=== PATIENT | male | born 1955 | race Caucasian/White ===

== ENCOUNTER 2019-04-14 10:08 | Inpatient (IN) ==
--- NOTE | 2019-04-14 10:25 | EKG Report ---
Test Performed on : 04/14/2019 10:19:50 AM Test Reason : CHEST PAIN Blood Pressure : / mmHG Vent. Rate : 078 BPM Atrial Rate : 078 BPM P-R Int : 152 ms QRS Dur : 104 ms QT Int : 392 ms P-R-T Axes : 063 062 032 degrees QTc Int : 446 ms Normal sinus rhythm. Septal infarct , age undetermined Abnormal ECG When compared with ECG of 13-APR-2019 13:34, (Unconfirmed) No significant change was found Unconfirmed Result
--- NOTE | 2019-04-14 12:33 | PROVIDER DOCUMENTATION ---
This chart was entered by Eliane Bradley Scribe, acting as scribe for Iam Andres MD. HPI-Chest Pain - General Chief Complaint: Chest Pain Stated Complaint: CP Time Seen by Provider: 04/14/19 10:17 Source: patient, old records Allergies/Adverse Reactions: Patient Allergies Allergy/AdvReac Type Severity Reaction Status Date / Time tramadol Allergy Unknown Verified 04/13/19 11:18 gabapentin [From Neurontin] AdvReac makes Verified 04/13/19 11:18 nerve pain worse cholesterol meds AdvReac cramping Uncoded 04/13/19 11:18 in legs Home Medications: Home Medication List Medication Instructions Recorded Confirmed Last Taken Type Amlodipine [Norvasc] 10 mg PO DAILY 06/06/17 04/14/19 04/13/19 History Albuterol Sulfate Inhaler 2 puff INH Q6H PRN PRN #1 inhaler 12/30/18 04/14/19 04/13/19 Rx [Ventolin Hfa] Hydrochlorothiazide 12.5 mg PO DAILY 12/30/18 04/14/19 04/13/19 History Metoprolol Tartrate [Lopressor] 1 tab PO DAILY 04/13/19 04/14/19 04/13/19 History - History of Present Illness-CP Nature of Presenting Problem: 63 y/o male presents to ED with substernal chest pain radiating to back/neck onset 10 days ago. Pt reports he was seen in ED yesterday, but left AMA because he had things he had to do. Pt states he has experienced associated dizziness and has had difficulty walking for the past 6 years. Pt reports his symptoms are worse today. Pt has hx COPD and is a smoker. Pt states he has hx alcoholism, but has not had anything to drink in 3 days. Pt reports movement exacerbates his pain. Pt is alert and oriented. Location: reports: substernal, epigastric Chest Pain Radiation: reports: neck, back Quality of Pain: reports: sharp Severity in ED: moderate Onset/Duration: other (10 days ago) Timing: still present, getting worse Context/Activities at Onset: reports: none Modifying Factors: worse with: movement Associated Symptoms: reports: back pain, dizziness Nitro Today/Relief: no nitro taken today Aspirin Treatment Today: no aspirin today Prior Chest Pain/Cardiac Workup: reports: other (workup in ED yesterday) Similar Symptoms Previously?: Yes Recently Seen Here or By Another Healthcare Provider: Yes (ED yesterday for same) Review of Systems - Adult - REVIEW OF SYSTEMS - ADULT Constitutional: denies: chills, fever Eyes: reports: no symptoms reported Ears, Nose, Mouth & Throat: reports: no symptoms reported Cardiovascular: reports: chest pain (radiating to back/neck). denies: palpitations Respiratory: denies: cough, shortness of breath Gastrointestinal: reports: no symptoms reported Genitourinary: reports: no symptoms reported Musculoskeletal: denies: bone pain, joint pain Integumentary: reports: no symptoms reported Neurological: reports: dizziness/vertigo, other (difficulty walking). denies: seizure Psychiatric: reports: no symptoms reported Endocrine: reports: no symptoms reported Hematologic/Lymphatic: reports: no symptoms reported Allergic/Immunologic: reports: no symptoms reported All Other Systems: Reviewed and Negative Past History - Adult - PAST MEDICAL HISTORY-ADULT Review of Records: reports: Old Records Reviewed, Nursing Assessment Review, Medications Reviewed Major Childhood Illnesses: reports: denies history Cardiovascular: reports: HTN, hyperlipidemia Respiratory: reports: asthma, COPD Gastrointestinal: reports: GERD Obstetrical/Gynecological: reports: denies history Genitourinary: reports: denies history Musculoskeletal: reports: arthritis, chronic pain, other (neuropathy on BLE) Neurological: reports: denies history Psychiatric: reports: other (EtOH abuse) Endocrine/Immune: reports: denies history Other Conditions: reports: denies history - PRIOR SURGERIES/PROCEDURES Surgical/Procedure History: reports: hernia repair, bowel surgery, other (cyst removal from neck) - IMMUNIZATION STATUS Childhood Immunizations: NUTD, See Nurse Assessment Flu Vaccine: See Nurse Assessment - FAMILY HISTORY Family History: reviewed, not pertinent - SOCIAL HISTORY Smoking: greater than 1 pack/day Provider spent 3-5 mins advising pt. on dangers of tobacco.: Discussed manners to quit use, and f/u contacts for add'l counseling. Substance Use: alcohol Alcohol Use Frequency: every day Living Situation: homeless Physical Exam-General - PHYSICAL EXAM-ADULT Initial Vital Signs Reviewed: Yes - CONSTITUTIONAL General Appearance: appears well, alert, no apparent distress - EYES Eyes: PERRL/EOMI, pink conjunctivae - HEAD, EARS, NOSE, MOUTH & THROAT HENMT: normocephalic/atraumatic, moist mucous membranes, normal ENT inspection - NECK Neck: non-tender, full range of motion - RESPIRATORY Respiratory: chest non-tender, lungs clear, normal breath sounds - CARDIOVASCULAR Cardiovascular: normal peripheral pulses, regular rate, rhythm - GASTROINTESTINAL (ABDOMEN) Abdominal Exam: normal bowel sounds, non tender, soft - MUSCULOSKELETAL Back Exam: normal inspection, no CVA tenderness, no vertebral tenderness Extremity: normal range of motion, non-tender - SKIN Integumentary: normal color, warm/dry - NEUROLOGIC Neurologic: grossly normal - PSYCHIATRIC Psych/Mental Status: normal mood/affect, normal thought content, normal thought process, oriented x 3 - HEART Score HEART Score: History: Slightly Suspicious HEART Score: ECG: Normal HEART Score: Age: 45-65 Years HEART Score: Risk Factors for Atherosclerotic Disease: > or = 3 Risk Factors or History of Atherosclerotic Disease HEART Score: Troponin: < or = Normal Limit Total HEART Score:: 3 Progress - PLAN OF CARE/RESULTS Progress/Plan/Lab Results: Vital Signs - 8 hr 04/14/19 10:12 04/14/19 10:24 04/14/19 10:25 Temperature 97.5 F L Pulse Rate 88 86 87 Respiratory Rate 16 16 14 Blood Pressure 159/85 181/126 O2 Sat by Pulse Oximetry 96 98 98 04/14/19 10:30 04/14/19 10:45 04/14/19 11:00 Temperature Pulse Rate 79 78 75 Respiratory Rate 16 14 18 Blood Pressure O2 Sat by Pulse Oximetry 95 97 95 04/14/19 11:15 04/14/19 11:30 04/14/19 11:45 Temperature Pulse Rate 70 73 71 Respiratory Rate 17 19 11 L Blood Pressure O2 Sat by Pulse Oximetry 95 97 97 04/14/19 12:00 04/14/19 12:10 Temperature Pulse Rate 73 73 Respiratory Rate 18 18 Blood Pressure 164/86 O2 Sat by Pulse Oximetry 95 96 Laboratory Results - last 24 hr 04/14/19 04/14/19 11:00 11:00 Creatine Kinase 81 Troponin T < 0.010 D Orders Category Date Time Status CK PROFILE [SP CHEM] Stat Lab 04/14/19 11:00 Completed TROPONIN T Stat Lab 04/14/19 11:00 Completed EKG [EKG] Stat Ther 04/14/19 10:16 Draft - EKG 1 Time of EKG reading by physician:: 10:19 EKG Read and Signed by:: Iam Andres EKG Interpretation (*Must complete 3 of following elements*): Abnormal Rate: 78 Rhythm: NSR Pelsor: normal QRS: other (septal infarct) CT Interval: normal ST Wave: normal - CONSULTS/PCP/HOSPITALIST Notification #1 *Consult/PCP/Hospitalist*: d/w Aaroney for Hospitalist Time Discussed: 12:26 Consult Disposition: Admit (for observation) Departure - Departure Date of Disposition Decision: 04/14/19 Time of Disposition Decision: 12:31 DIAGNOSIS: Chest pain Disposition: ADMITTED INPATIENT 09 Certified Medical Emergency: Emergent Condition: Stable Referrals and Follow-Ups: Desi Park MD [Primary Care Provider] - Discharge Education: Steps to Quit Smoking, [id number] - Critical Care Note This patient required my direct & personal management of CC.: No Attestation - Physician/ DAVID Attestation Patient care was provided by Advanced Practice Provider:: No The physician spent face to face time with patient:: Yes Advanced Practice Provider documentation review:: Supervising physician onsite and consulted in the evaluation and care of this patient. The physician did have a face to face encounter with the patient. This chart was documented by the indicated scribe, (Eliane Bradley Scribe) and accurately reflects the services I performed and decisions made by me, Iam Andres MD, as attested by the provider's signature.
[2019-04-14] MEDS ORDERED: DUONEB (A & A) INH PRN (13:11)
[2019-04-14] MEDS ORDERED: G.I. COCKTAIL PO ONE (13:19)
[2019-04-14 13:23] LABS: URINE SOURCE VOIDED
[2019-04-14 13:27] LABS: BILIRUBIN URINE NEGATIVE (NEGATIVE); BLOOD URINE NEGATIVE (NEGATIVE); COLOR YELLOW; GLUCOSE URINE NEGATIVE (NEGATIVE); KETONE URINE TRACE mg/dL (NEGATIVE); LEUKOCYTES URINE NEGATIVE (NEGATIVE); NITRITE URINE NEGATIVE (NEGATIVE); PH URINE 6.5; PROTEIN URINE 30 mg/dL (NEGATIVE); SP GRAVITY URINE 1.035; TURBIDITY URINE CLEAR (CLEAR); UROBILINOGEN URINE 2 mg/dL (NORMAL)
[2019-04-14 13:29] LABS: UR EPITHELIAL CELLS <10 /HPF (<10); URINE BACTERIA NEGATIVE /HPF; URINE RBC <10 /HPF (<10); URINE WBC <10 /HPF (<10)
[2019-04-14 13:53] LABS: UR AMPHETAMINES QUAL PRESUMPTIVE POSITIVE (NONE DETECT); UR BARBITUATES QUAL NONE DETECTED (NONE DETECT); UR BENZODIAZEPIN QUAL NONE DETECTED (NONE DETECT); UR CANNABINOIDS QUAL NONE DETECTED (NONE DETECT); UR COCAINE QUAL NONE DETECTED (NONE DETECT); UR METHADONE QUAL NONE DETECTED (NONE DETECT); UR OPIATES QUAL NONE DETECTED (NONE DETECT); UR OXYCODONE QUAL NONE DETECTED (NONE DETECT); UR PCP QUAL NONE DETECTED (NONE DETECT)
[2019-04-14] MEDS ORDERED: M.V.I.-12 10 ML, FOLIC ACID 1 MG, MAGNESIUM SULFATE 1 GM, THIAMINE 100 MG in NS 1,000 ML IV ONE (14:00)
[2019-04-14 14:56] LABS: BASO# 0.01 X1000 (0.0-0.2); BASO% 0.2 % (0.0-0.8); EOS# 0.03 X1000 (0.0-0.7); EOS% 0.6 % (0.0-10.0); HEMATOCRIT 45.9 % (42.0-52.0); HEMOGLOBIN 15.8 g/dL (14.0-18.0); IMM GRAN# 0.02 X1000 (0.0-0.04); IMM GRAN% 0.4 % (0.0-0.5); LYMPH# 0.66 X1000 (1.2-3.4); LYMPH% 12.7 % (20.5-51.1); MCH 32.4 PG (27-31); MCHC 34.4 g/dL (33-37); MCV 94.3 FL (81-99); MONO% 9.6 % (1.7-9.3); MPV 9.5 FL (7.4-10.4); NEUT# 3.97 X1000 (1.4-6.5); NEUT% 76.5 % (42.2-75.2); PLT 110 X1000 (130-400); RBC 4.87 XMIL (4.7-6.1); RDW 13.7 % (11.5-14.5); WBC 5.19 X1000 (4.8-10.8)
[2019-04-14 15:05] LABS: AGAP 17; ALBUMIN 4.2 g/dL (3.5-5.0); ALKALINE PHOSPHATASE 112 U/L (32-122); BUN 11 mg/dL (8-22); CALCIUM 8.8 mg/dL (8.8-10.2); CHLORIDE 100 mmol/L (98-107); COSMO 281; CREATININE 0.8 mg/dL (0.7-1.2); ESTIMATED GFR > 60; GLUCOSE 143 mg/dL (70-104); GOT 17 U/L (10-34); GPT 11 U/L (10-44); SODIUM 140 mmol/L (136-145); TCO2 23 mmol/L (25-35); TOTAL BILIRUBIN 0.46 mg/dL (0.20-1.00); TOTAL PROTEIN 6.3 g/dL (6.3-8.3)
[2019-04-14] MEDS ORDERED: BENTYL PO PRN (16:03)
[2019-04-14] MEDS ORDERED: ATARAX PO PRN (16:03)
[2019-04-14] MEDS ORDERED: ROBAXIN PO PRN (16:03)
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
[2019-04-14] MEDS: CARAFATE PO SCH ×2 (17:24→20:32)
[2019-04-14] MEDS: NORVASC PO SCH (17:24)
[2019-04-14] MEDS: HYDROCHLOROTHIAZIDE PO SCH (17:25)
[2019-04-14] MEDS: NICODERM PATCH TD SCH (17:26)
--- NOTE | 2019-04-14 17:29 | HISTORY AND PHYSICAL ---
HISTORY OF PRESENT ILLNESS: I have seen and examined Mr. Ross today. Mr. Ross presented to the ER yesterday because of chest pain and was evaluated. I understand according to him, he was not being attended to on time and he had a lot of things to do, so he left. He went home, slept, woke up this morning with more chest pain associated with some shortness of breath. So, he came to the emergency department where he was re-evaluated and being admitted because of chest pain. Mr. Ross has a history of hypertension, tobacco use, alcohol use and abuse. PHYSICAL EXAMINATION: VITAL SIGNS: His current vitals have been reviewed. Blood pressure is 163/97, pulse of 75, respirations 15, temperature is 97.9 degrees. GENERAL: Physical exam has been reviewed. Mr. Ross is a 63-year-old, male. He is in bed. LUNGS: He does have a mild reduction in the air entry in both lung lyman. There is some prolonged expiratory phase of respiration. I did not hear any wheezing. CARDIOVASCULAR: Regular rate and rhythm. ABDOMEN: Soft. EXTREMITIES: No pedal edema. LABORATORY AND DIAGNOSTIC DATA: Laboratory data has been reviewed. His troponins are negative. His EKG shows normal sinus rhythm with normal axis. No T-waves or ST-segment abnormality. He did have a CTA of the lungs yesterday, which showed possible reflux esophagitis and advanced COPD. CT scan of the abdomen which was also done, shows COPD, respiratory bronchiolitis with interstitial lung disease in the bronchial basis, tiny nonobstructing bilateral renal stones. ASSESSMENT/PLAN: 1. Atypical chest pain in patient with multiple comorbidities. The patient is being admitted to rule out any coronary artery disease. 2. Advanced chronic obstructive pulmonary disease. Not in exacerbation. We will use p.r.n. nebulization if needed. Mr. Ross would benefit from inhalers once he is stable for discharge. 3. Uncontrolled hypertension. The patient has been started on his home medication. We will titrate this accordingly. 4. Suspected reflux esophagitis on CT scan. The patient has been started on PPI. 5. Tobacco and alcohol use and abuse. Patient has been counseled. We will be looking out for any withdrawal symptoms and patient will be started on nicotine patch. Please refer to the details of the history and physical which has been dictated in the chart by the CLINICAL RECRUITER. cc: Hakeem Santacruz MD [facility] HOSPITALDhruv
[2019-04-14] MEDS: LIBRIUM PO SCH (20:32)
[2019-04-15] MEDS: LIBRIUM PO SCH ×4 (02:29→18:35)
[2019-04-15] MEDS: CARAFATE PO SCH ×4 (06:23→20:23)
[2019-04-15] MEDS: PROTONIX PO SCH (06:23)
[2019-04-15 08:04] LABS: BASO# 0.01 X1000 (0.0-0.2); BASO% 0.2 % (0.0-0.8); EOS# 0.06 X1000 (0.0-0.7); EOS% 1.5 % (0.0-10.0); HEMATOCRIT 43.5 % (42.0-52.0); HEMOGLOBIN 14.9 g/dL (14.0-18.0); LYMPH# 1.14 X1000 (1.2-3.4); LYMPH% 28.2 % (20.5-51.1); MCH 32.5 PG (27-31); MCHC 34.3 g/dL (33-37); MONO# 0.53 X1000 (0.11-0.59); MONO% 13.1 % (1.7-9.3); MPV 10.2 FL (7.4-10.4); PLT 126 X1000 (130-400); RBC 4.58 XMIL (4.7-6.1); RDW 13.6 % (11.5-14.5); WBC 4.04 X1000 (4.8-10.8)
[2019-04-15 08:19] LABS: AGAP 14; ALB/GLOB RATIO 1.7; ALBUMIN 3.7 g/dL (3.5-5.0); ALKALINE PHOSPHATASE 94 U/L (32-122); BUN 13 mg/dL (8-22); CALCIUM 8.5 mg/dL (8.8-10.2); CHLORIDE 101 mmol/L (98-107); COSMO 277; CREATININE 0.6 mg/dL (0.7-1.2); ESTIMATED GFR > 60; GLUCOSE 92 mg/dL (70-104); GOT 18 U/L (10-34); GPT 11 U/L (10-44); POTASSIUM 2.8 mmol/L (3.5-5.1); SODIUM 139 mmol/L (136-145); TCO2 24 mmol/L (25-35); TOTAL PROTEIN 5.9 g/dL (6.3-8.3)
[2019-04-15] MEDS ORDERED: KLOR-CON PO ONE (08:59)
[2019-04-15] MEDS: NORVASC PO SCH (09:48)
[2019-04-15] MEDS: HYDROCHLOROTHIAZIDE PO SCH (09:48)
[2019-04-15] MEDS: NICODERM PATCH TD SCH (09:49)
[2019-04-15] MEDS: LOPRESSOR PO SCH (09:49)
--- NOTE | 2019-04-15 12:27 | Diag Imaging Result Doc PS360 ---
EXAM: US GB < RUQ (LIMITED) 04/15/2019 HISTORY: right upper quandrant pain TECHNIQUE: Right upper quadrant ultrasound COMMENT: The body and head of the pancreas are within normal limits. There is a cyst in the left hepatic lobe measuring 1.7 cm in diameter. There is another in the right lobe anteriorly measuring 2.8 cm. The aorta and inferior vena cava are normal in appearance where they're visible. The right kidney is without evidence of hydronephrosis or mass. There is antegrade flow in the portal vein. The gallbladder is not distended. There is sediment and small stones in the gallbladder. No para cholecystic fluid is present. There is no sonographic Horta sign. There is no evidence of biliary dilatation the common bile duct measuring less than 5 mm. No abnormal fluid collections are present. IMPRESSION: Cholelithiasis. No evidence of cholecystitis. Electronically signed by Jose Roberto Pappas 04/15/2019 12:25 PM
--- NOTE | 2019-04-15 14:01 | PROGRESS NOTE ---
DATE: 04/15/2019 SUBJECTIVE: This morning, Mr. Ross refers to be doing a lot better. He denies any chest pain now but he did say he has right upper quadrant and epigastric pain. OBJECTIVE: Vital Signs: Blood pressure is 148/71, pulse of 61, respirations are 20, temperature is 97.9 degrees. General Examination: Mr. Ross is a 63-year-old, gentleman. He was in bed. No distress. HEENT: Mucosa was pink and moist. Anicteric. Acyanotic. Neck: Supple. Chest: Clear to auscultation. There were no crepitations. No rhonchi. Cardiovascular: Regular rate and rhythm. Abdomen: Soft. There is some old midline surgical scar but there was no rebound or any guarding. Bowel sounds were present. No hepatosplenomegaly. Extremities: No pedal edema. LEAD SOFTWARE TESTER: The patient was awake, alert, and oriented. Laboratory Data: CBC is unremarkable except for borderline low WBC. Chemistry is reviewed. Potassium is 2.8. Creatinine has been trended three times, all within normal range. We did an ultrasound of the right upper quadrant which shows cholelithiasis. No evidence of cholecystitis. ASSESSMENT: 1. Atypical chest pain on presentation. At this point, Mr. Ross himself denies any chest pain at this moment. Electrocardiogram and troponins have all been negative. We are pending a stress test. 2. Right upper quadrant pain, according to the patient. Ultrasound has revealed a cholelithiasis without cholecystitis. I do not think this is causing any of his presenting symptoms. I think he will be okay to be reviewed by surgery on outpatient basis. 3. Uncontrolled hypertension on presentation, improved. 4. Reflux esophagitis on CAT scan. Patient has been started on a proton pump inhibitor. 5. Tobacco use and abuse prior to hospitalization. Patient has been counseled. 6. Alcohol abuse. Patient has been counseled. 7. Hepatic cyst noted on imaging. 8. Hypokalemia. We will replace this. PLAN: In general, I think Mr. Ross is doing well. This morning, he denies any chest pain. He did, however, say he has some right upper quadrant and lower right chest discomfort. An ultrasound revealed cholelithiasis without cholecystitis. He is tolerating his diet. He is pending a stress test tomorrow. If that is okay, he will be discharged. cc: Hakeem Santacruz MD
[2019-04-15] MEDS: ATIVAN PO SCH (20:23)
[2019-04-16] MEDS: CARAFATE PO SCH ×5 (06:14→21:15)
[2019-04-16] MEDS: PROTONIX PO SCH (06:43)
[2019-04-16] MEDS: NICODERM PATCH TD SCH (08:12)
[2019-04-16] MEDS: LIBRIUM PO SCH ×3 (08:13→17:20)
[2019-04-16] MEDS ORDERED: LEXISCAN ONE (15:02)
--- NOTE | 2019-04-16 17:07 | PROGRESS NOTE ---
DATE: 04/16/2019 SUBJECTIVE: This morning Mr. Ross refers to be doing well. He said the right upper quadrant pain has significantly improved. He was awaiting to do his stress test. OBJECTIVE: Vital Signs: Blood pressure was 195/96, pulse of 67, respirations 18, temperature 97.8 degrees. General: Mr. Ross is a 63-year-old male. He is in bed, no distress. HEENT: Mucosa is pink and moist. Anicteric. Acyanotic. Neck: Supple. Chest: Clear to auscultation. There were no crepitations. No rhonchi. Cardiovascular: Regular rate and rhythm. Abdomen: Soft, nontender. There is an old midline surgical scar, but there is no rebound or guarding. No hepatosplenomegaly. Extremities: No pedal edema. 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 LABORATORY DATA: None for today. ASSESSMENT: 1. Atypical chest pain on presentation with unremarkable electrocardiograms and negative troponins. Patient is pending a stress test. 2. Right upper quadrant pain, resolved. 3. Cholelithiasis without cholecystitis on imaging. The patient is also completely asymptomatic. He has been advised to follow up with surgery. 4. Uncontrolled hypertension on presentation, improving. We are going to continue adjusting his medications. 5. Reflux esophagitis on CAT scan. Patient is on PPI. 6. Tobacco and alcohol use and abuse. Patient has been counseled. 7. Hepatic cyst noted on imaging. 8. Hypokalemia, replaced. PLAN: So in general, I think Mr. Ross is doing well. He does not have any more pain. He is pending his stress test this morning. Depending on the stress test results, we will give further recommendations. cc: Hakeem Santacruz MD [facility]
[2019-04-16] MEDS: HYDROCHLOROTHIAZIDE PO SCH (17:18)
[2019-04-16] MEDS: LOPRESSOR PO SCH (17:19)
[2019-04-16] MEDS: NORVASC PO SCH (17:20)
--- NOTE | 2019-04-16 20:33 | Diag Imaging Result Document ---
PROCEDURE NAME: MYOCARDIAL PERF SCAN, STR/REST - 04/16/2019 STUDY: Rest/stress Lexiscan myocardial perfusion stress test. REQUESTING PHYSICIAN: Dr. Santacruz. INDICATION: Chest pain. DESCRIPTION: The patient came into the nuclear lab and received a rest injection of technetium 99 sestamibi 11.9 mCi. Multiple tomographic views of the cardiac structures were obtained at rest. Subsequently, the patient underwent a Lexiscan protocol, and 0.4 mg of Lexiscan were infused. At peak infusion, he was injected with technetium 99 sestamibi 36.2 mCi. Multiple tomographic views of the cardiac structures were obtained following the completion of the protocol. SUMMARY OF THE ELECTROCARDIOGRAPHIC PORTION OF THE STUDY: Resting ECG showed sinus rhythm with a rate of 73 beats per minute. Blood pressure is 173/89. Resting ECG shows sinus rhythm with a diffuse nonspecific ST-T abnormality. During the protocol, the heart rate increased to 100 beats per minute. The blood pressure went up to 177/101 and then down to 169/78. The ECG showed no significant changes. There was a diffuse ST-T abnormality during the infusion of the pharmaceutical agent. The patient reported no chest pain, shortness of breath, or palpitations. Occasional PVCs were noted. In summary, the electrocardiographic response to infusion of Lexiscan is nonspecific. SUMMARY OF THE MYOCARDIAL PERFUSION PORTION OF THE STUDY: Poststress tomographic views of the left ventricle showed a moderately extensive or relatively extensive, moderate to severe inferior wall defect. The rest images showed partial reversibility of this defect. Polar plots revealed the same. There is evidence of a relatively extensive inferior wall ischemic defect on top of a scar. The gated SPECT shows relatively preserved left ventricular systolic function with hypokinesis of the inferior wall. The chamber is not dilated. The lung/heart ratio is normal at 0.32. The TID is normal at 0.93. SUMMARY: This study shows: 1. Nonspecific electrocardiographic response to a Lexiscan protocol. 2. Abnormal poststress myocardial perfusion scan. There is scintigraphic evidence of a moderately severe degree of inducible ischemia involving the inferior wall of the left ventricle on top of a scar. 3. Preserved ejection fraction of 61% with hypokinesis of the inferior wall. This study represents increased risk for ischemic events. Clinical correlation is recommended. cc: MD Hakeem Powers, MD
[2019-04-16] MEDS: ATIVAN PO SCH (21:15)
[2019-04-16 21:47] LABS: AGAP 10; BUN 13 mg/dL (8-22); CALCIUM 8.9 mg/dL (8.8-10.2); CHLORIDE 99 mmol/L (98-107); COSMO 273; CREATININE 0.7 mg/dL (0.7-1.2); ESTIMATED GFR > 60; GLUCOSE 85 mg/dL (70-104); MAGNESIUM 2.2 mg/dL (1.5-2.7); POTASSIUM 3.7 mmol/L (3.5-5.1); SODIUM 137 mmol/L (136-145); TCO2 28 mmol/L (25-35)
[2019-04-17] MEDS: CARAFATE PO SCH ×4 (06:44→20:16)
[2019-04-17] MEDS: PROTONIX PO SCH (06:45)
--- NOTE | 2019-04-17 07:50 | PROGRESS NOTE ---
DATE: 04/17/[address] Desi Park. This is a 63-year-old who presented on 04/14/2019, had chest pain when evaluated, but it sounds like pleuritic pain on the right, which has been going on for over a week. He had a lot of things to do, I think. Came to the emergency room the day before and so he went home, woke up with chest pain associated with shortness of breath, and came to the emergency room. He appears to have advanced COPD. He had uncontrolled hypertension and reflux esophagitis on a CT scan. He was started on a proton pump inhibitor. Abdominal ultrasound showed cholelithiasis but no cholecystitis. Myocardial perfusion scan post-stress tomographic views, the left ventricle showed moderately extensive or relatively extensive moderate to severe inferior wall defect. It showed partial reversibility of this defect, so abnormal post-stress myocardial perfusion scan. Moderate to severe degree of inducible ischemia in the inferior wall of the left ventricle on top of a scar. He had preserved ejection fraction of 61%. ASSESSMENT AND PLAN: 1. Atypical chest pain on presentation. Unremarkable electrocardiograms, negative troponins. Stress test though shows moderate to severe degree of reversible ischemia. 2. Right upper quadrant pain, resolved. 3. He has some right-sided pleuritic pain which he said he has had for 8 or 9 days. 4. Cholelithiasis. No cholecystitis on imaging. 5. Uncontrolled hypertension. Continue to adjust medications. 6. He had some reflux esophagitis on CAT scan. He is on a proton pump inhibitor. I have discussed the importance of tobacco and alcohol cessation. He has a hepatic cyst that was noticed on imaging. His hypokalemia had been addressed. REVIEW OF HIS ORDERS: He is on Carafate 1 g q.a.c. and at bedtime, Protonix 40 mg a day, nicotine patch 14 mg daily, Lopressor 100 mg daily, hydrochlorothiazide 12.5 mg daily, Librium 10 mg t.i.d., Norvasc 10 mg a day, and Ativan 0.25 mg at bedtime. I am going to ask cardiology to see based on his myocardial perfusion scan. He has a moderately to severe degree of inducible ischemia involving the inferior wall of the left ventricle. cc: Amanuel Hernandez MD
[2019-04-17] MEDS: LOPRESSOR PO SCH (08:21)
[2019-04-17] MEDS: HYDROCHLOROTHIAZIDE PO SCH (08:21)
[2019-04-17] MEDS: NICODERM PATCH TD SCH (08:21)
[2019-04-17] MEDS: NORVASC PO SCH (08:21)
[2019-04-17] MEDS: LIBRIUM PO SCH ×3 (09:35→20:16)
--- NOTE | 2019-04-17 09:58 | Diag Imaging Result Doc PS360 ---
CHEST-2 VIEWS - 04/17/2019 INDICATION: chest pain COMPARISON: 04/13/2019 FINDINGS: Stable hyperexpanded lungs compatible with COPD. No infiltrates or edema. Heart size is normal. No pneumothorax or pleural effusion. IMPRESSION: COPD. Electronically signed by Jeffery Huffman 04/17/2019 9:55 AM
[2019-04-17 10:48] LABS: CHOLESTEROL 259 mg/dL (0-200); HDL 47 mg/dL (35-55); LDL 182 mg/dL; TRIGLYCERIDES 151 mg/dL (39-160); VLDL 30 mg/dL
[2019-04-17] MEDS ORDERED: HEPARIN 1000 UNITS/NS 2,000 UNIT/1,000 ML IV.SOLN ONE (11:23)
[2019-04-17] MEDS ORDERED: XYLOCAINE 1% ONE (11:23)
[2019-04-17] MEDS ORDERED: NITROGLYCERIN ONE (11:42)
--- NOTE | 2019-04-17 13:03 | CARDIOLOGY CONSULTATION ---
DATE: 04/17/2019 CHIEF COMPLAINT: Chest pain. HISTORY OF PRESENT ILLNESS: Mr. Ross is a 63-year-old white male with a history of COPD and hypertension who presented with complaints of chest pain that have been located in the right lower chest area and have been relatively constant for the last 10 to 12 days. There has been periods of worsening but they have not resolved at all. There is a component that is reproducible with palpation of the right lower chest wall. There was no obvious external signs of trauma. No obvious bony deformities. He is not aware of any recent injuries to that area. There is no component of it that is worse with just walking. He also reports a component that is worse with deep breath. PAST MEDICAL HISTORY: 1. Significant for COPD. 2. Reflux disease. 3. Hyperlipidemia. 4. Hypertension. 5. Neuropathy. 6. Chronic back pain. SOCIAL HISTORY: He smokes a pack a day. He drinks at least 4 beers a day, and then a 5th of vodka periodically. He then adds a 5th of vodka periodically on some days. REVIEW OF SYSTEMS: A 10 system review of systems is negative except for those mentioned in HPI. FAMILY HISTORY: Significant for hypertension. PHYSICAL EXAMINATION: He is afebrile. Heart rate is 66. His blood pressure is 157/85. He has been quite hypertensive for the duration of this visit with systolics anywhere from the 140s to 190s. General: He is in no acute distress. HEENT: Oropharynx is moist. Poor dentition. Eye examination shows pink conjunctivae. White sclerae. Neck: Examination shows no obvious thyromegaly or thyroid tenderness. Cardiovascular: He sounds to be in a regular rate and rhythm. He has no obvious murmurs. He has no S3. He has no lower extremity edema. Chest: Clear bilaterally. He has no increased work of breathing. He has some tenderness in the right lower chest wall with again no obvious bony deformities. Abdomen: Soft, nontender, and nondistended. He has no obvious organomegaly. Skin: Warm and dry throughout without any rashes. Neurological: Moving all extremities well with no obvious lateralizing deficits. PERTINENT DATA: His nuclear scan demonstrated a moderate to severe degree of inducible ischemia involving the inferior wall of the left ventricle on top of a baseline scar. The ejection fraction was 61% with hypokinesis of the inferior wall. He had an abdominal ultrasound showing cholelithiasis with no evidence of cholecystitis. I do not have any chest x-ray on the patient. His electrocardiogram demonstrates a sinus rhythm with nonspecific ST-T changes. His laboratory data demonstrates a white count of 4 yesterday, hematocrit 43, and platelet count of 126,000. His sodium today is 137 with a potassium of 3.7, BUN 13, and creatinine 0.7. ASSESSMENT: Mr. Ross is a 63-year-old hypertensive hyperlipidemic male who has complaints of chest pain that do not seem ischemic in origin. He also has an extensive history of tobacco use and alcoholism. PLAN: At this point, considering the defect on his nuclear scan, we would recommend cardiac catheterization. I do not believe the chest discomfort that he is experiencing is related to the abnormal nuclear scan, but at this point, we will proceed with testing as described above. I will order a chest x-ray as it does not appear one has been done during this hospitalization. Certainly, he could have some bony pathology going on. He has not had any sort of imaging of his chest wall. ADDENDUM: His cardiac cath demonstrates a chronically occluded RCA with well developed left to right collaterals. At this point we will proceed with medical management. cc: Jarred Lopez MD MTDDhruv
[2019-04-17] MEDS ORDERED: DILAUDID ONE (13:06)
[2019-04-17] MEDS ORDERED: CLAVE TWINSITE 32 IN 11959 ONE (13:06)
[2019-04-17] MEDS ORDERED: NS 1,000 ML ONE (13:06)
[2019-04-17] MEDS ORDERED: VERSED ONE (13:06)
[2019-04-17] MEDS ORDERED: CLAVE PUMP SET NO FILTER 12260 ONE (13:06)
--- NOTE | 2019-04-17 15:52 | PROGRESS NOTE ---
DATE: 04/17/2019 SUBJECTIVE: Today, Mr. Ross referred to be doing well. He did have still some complaint of ongoing pain in the right upper quadrant and the right chest. OBJECTIVE: Vital Signs: Blood pressure 162/77, pulse of 50, respirations 14, and temperature 97.7 degrees. General: Mr. Ross is a 63-year-old gentleman. He was in bed in no distress. Mucosa is pink and moist. Anicteric. Acyanotic. Neck: Supple. Chest: Good air entry bilateral. There were no crepitations. No rhonchi. Cardiovascular: Regular rate and rhythm. No murmurs, no rubs, no gallops. Abdomen: Soft and nontender. Bowel sounds were present. There is an old midline surgical scar. Extremities: No pedal edema. CHILD MONITOR: Patient was awake, alert, and oriented. DIAGNOSTIC STUDIES: No lab work for today. The patient's stress test yesterday shows evidence of moderately severe degree of inducible ischemia involving the inferior wall of the left ventricle on top of the scar. There is a preserved ejection fraction of 61 with hypokinesis of the inferior wall. ASSESSMENT: 1. Chest pain on presentation with abnormal stress test concerning for coronary artery disease with some reversible changes on stress. The patient is pending a left heart catheterization tomorrow. 2. Cholelithiasis without cholecystitis on imaging. The patient remains asymptomatic. 3. Uncontrolled hypertension. We will continue to titrate his medications. 4. Reflux esophagitis. Patient is on PPI. 5. Tobacco and alcohol use and abuse prior to hospitalization. Patient is counseled. In general, Mr. Ross is doing fairly okay. We are going to continue to titrate his medications for blood pressure control. He has been evaluated by Cardiology. His stress test is remarkably abnormal, so he has been evaluated by Cardiology, and there is a plan for left heart catheterization tomorrow. cc: Hakeem Santacruz MD [facility]
--- NOTE | 2019-04-17 19:25 | CARDIAC CATH REPORT ---
PROCEDURE NAME: - INDICATION: Fixed inferior defect with pollo-infarct ischemia. Patient with chest pain. PROCEDURES PERFORMED: 1. Left heart catheterization. 2. Selective coronary angiography. 3. Left ventriculogram. PROCEDURE IN DETAIL: Mr. Ross was brought to the catheterization laboratory in a fasting state. Informed consent was obtained. Prepped in the usual fashion. Anesthetized over the right radial artery after Amanuel's test proved adequate. A 5-Macedonian sheath was placed via true Seldinger technique. Radial cocktail was administered. Catheters were introduced. Hemodynamic measurements were made in the ascending thoracic aorta. Coronary angiography was performed in multiple views using JL3.5 and JR4 diagnostic catheters. Left heart catheterization and left ventriculogram were performed using the JR4. At the conclusion of the procedure, all sheaths and catheters were removed. BLOOD LOSS: 5-10 mL. CONTRAST: 75 mL of IV contrast. COMPLICATIONS: No apparent complications. FINDINGS: 1. The left main appears normal. 2. Left anterior descending originates from the left main. A 20% to 40% diffuse proximal, mid, and distal vessel disease is noted with a 20% ostial 1st diagonal. 3. Circumflex originates from the left main. There is a fixed 50% proximal lesion, a 40% to 50% diffuse mid and distal, as well as a 40% diffuse disease noted in the cascade of obvious marginals. 4. The right coronary artery originates from the right coronary cusp. There is to 70% to 80% diffuse proximal and mid disease leading into what appears to be a chronic occlusion of the mid right coronary. There were well-developed collaterals from the left system involving the LAD and circumflex over to the right system. A 50% diffuse disease is noted in the PDA. 5. The left ventriculogram demonstrates an EF of 55%, inferior basilar and mid akinesis. 6. Aorta: Blood pressure 173/82 with a mean of 111. Left ventricle pressure 161/2 with an LVEDP of 12. ASSESSMENT: Mr. Ross is a 63-year-old gentleman, who presented with chest pain and has fixed defects on his nuclear scan. PLAN: He has a what appears to be chronically occluded right coronary with well-developed collaterals. We will continue to treat this medically for the time being. cc: Jarred Lopez MD
[2019-04-17] MEDS: ATIVAN PO SCH (20:16)
[2019-04-18] MEDS: CARAFATE PO SCH ×2 (06:13→11:36)
[2019-04-18] MEDS: PROTONIX PO SCH (06:13)
[2019-04-18 06:43] LABS: CREATININE 0.7 mg/dL (0.7-1.2); MAGNESIUM 2.2 mg/dL (1.5-2.7)
[2019-04-18] MEDS: NORVASC PO SCH (08:14)
[2019-04-18] MEDS: LOPRESSOR PO SCH (08:15)
[2019-04-18] MEDS: LIBRIUM PO SCH ×2 (08:15→14:10)
[2019-04-18] MEDS: NICODERM PATCH TD SCH (08:15)
[2019-04-18] MEDS ORDERED: COZAAR PO SCH ×2 (09:00)
[2019-04-18] MEDS ORDERED: COREG PO SCH (09:00)
[2019-04-18] MEDS ORDERED: ASPIRIN PO SCH (09:00)
[2019-04-18] MEDS ORDERED: HYDROCHLOROTHIAZIDE PO SCH (09:00)
--- NOTE | 2019-04-18 11:17 | PROGRESS NOTE ---
DATE: 04/18/2019 SUBJECTIVE: This morning, Mr. Ross refers to be doing well. Still has some mild right-sided chest pain which according to him, gets worse with exacerbation. OBJECTIVELY: Current vital signs: Blood pressure is 167/73, pulse of 63, respirations 20, temperature 97.8 degrees. General: Mr. Ross is a 63-year-old gentleman. He is in bed, no distress. HEENT: Mucosa is pink and moist. Anicteric. Acyanotic. Neck: Supple. Chest: Clear to auscultation. No crepitations. No rhonchi. Cardiovascular: Regular rate and rhythm. Gastrointestinal: Abdomen was soft, nontender. There is an old midline surgical scar. There is also some scar on the right side of the abdominal wall. Extremities: No pedal edema. Central nervous system: Patient is awake, alert, and oriented. There is no focal neurological deficit. LABORATORY DATA: Creatinine continues to be normal at 0.7. Magnesium is 2.2. The left heart catheterization yesterday seems to suggest a chronically occluded right coronary with well-developed collaterals. Recommendation is to continue medical therapy for now. ASSESSMENT AND PLAN: 1. Chest pain on presentation secondary to coronary artery disease. The patient is status post left heart catheterization, which shows completely occluded right coronary. There is also nonobstructive stenosis in both the circumflex and the LAD; however, not enough to want any intervention at this point. We are going to continue with maximizing medical therapy. I have added nitrates to his current medications. We will be waiting final recommendations from Cardiology with that regard. 2. Uncontrolled hypertension. The patient is currently on Norvasc. I have switched his Lopressor to carvedilol to optimize blood pressure control. We have also gone up on his losartan to 100 mg. 3. Dyslipidemia. Patient is on high-statin therapy. 4. Reflux esophagitis. We will continue with PPI. 5. Cholelithiasis without cholecystitis. Patient is aware. He remains asymptomatic and he has been advised to follow up with Surgery. 6. Tobacco and alcohol use and abuse prior to hospitalization. Patient has been counseled. DISPOSITION: In general, I think Mr. Ross is clinically stable. He still remains with some on-and-off pain. We have added nitrates to his medication. His current management will be pending on final recommendations from Cardiology and see if he can be discharged today. cc: Hakeem Santacruz MD
[2019-04-18 11:41] VITALS: BP 154/73
[2019-04-18] MEDS ORDERED: ISORDIL PO SCH (12:00)
--- NOTE | 2019-04-18 15:27 | Extremity Venous Study ---
PROCEDURE NAME: Venous U/S Bilateral Legs - 04/14/2019 REQUEST PHYSICIAN: DIANA Simon. READING PHYSICIAN: Lino Perez MD. OSCILLOGRAPH TECHNICIAN: Silvia Brady RVT. INDICATION: Leg pain. FINDINGS: The deep and superficial veins of both lower extremities were imaged throughout their course. They are compressible, patent without thrombus. INTERPRETATION: No DVT or SVT of either lower extremity. cc: MD Lillie Washington CRNP
[2019-04-18] MEDS ORDERED: LIPITOR PO SCH (21:00)
--- NOTE | 2019-04-19 12:22 | DISCHARGE SUMMARY ---
ADMISSION DATE: 04/14/2019 DISCHARGE DATE: 04/18/2019 DISPOSITION: Home. FOLLOW-UP: 1. Dr. Park. 2. Dr. Lopez. 3. Dr. Mohr. CONSULTATIONS DURING THIS ADMISSION: Cardiology was consulted. Patient was seen by Dr. Lopez. INVASIVE PROCEDURES DONE DURING THIS ADMISSION: A left heart catheterization was done by Dr. Jarred Lopez. Please refer to the details of the report in the chart. ADMISSION DIAGNOSES: 1. Epigastric/chest pain. 2. Elevated D-dimer. 3. Hypertension. 4. Dyslipidemia. 5. Tobacco abuse. DIAGNOSES AT TIME OF DISCHARGE: 1. Unstable angina on admission. The patient is status post left heart catheterization, which showed a completely occluded right coronary artery. There was also nonobstructive stenosis in both the circumflex and LAD. 2. Uncontrolled hypertension improved. 3. Dyslipidemia. 4. Reflux esophagitis. 5. Cholelithiasis without cholecystitis. 6. Tobacco and alcohol use and abuse prior to hospitalization. 7. Dyslipidemia. DISCHARGE MEDICATIONS: 1. Amlodipine 10 mg p.o. daily. 2. Hydrochlorothiazide 12.5 p.o. daily. 3. Nicotine patch. 4. Pantoprazole 40 mg p.o. daily. 5. Iron 1 tablet daily. 6. Thiamine 100 mg p.o. daily. 7. Carafate 1 g p.o. q. 4 times per day. 8. Spiriva inhaler. 9. Atorvastatin 40 mg p.o. at bedtime. 10. Aspirin 81 mg p.o. daily. 11. Carvedilol 12.5 b.i.d. 12. Isordil 10 mg p.o. 3 times per day. 13. Losartan 100 mg p.o. daily. PRESENTING COMPLAINT: Epigastric and chest pain. HISTORY OF PRESENTING COMPLAINT: Mr. Ross is a 63-year-old gentleman with a history of COPD, dyslipidemia, and hypertension, who came to the emergency department because of epigastric and chest discomfort. He was admitted for cardiac workup. HOSPITAL COURSE: Mr. Ross was admitted to the [facility]. His troponins were trended 3 times which were unremarkable. His EKGs did not also have any acute T-waves or ST-segment abnormality. He did undergo a myocardial perfusion scan which showed evidence of moderately severe degree of inducible ischemia involving the inferior wall of the left ventricle on top of the scar. Ejection fraction was about 61% with hypokinesis of the inferior wall. Cardiology was consulted for the abnormal stress test. A decision of a left heart catheterization was done. The patient underwent a successful left heart catheterization. Findings revealed a chronically occluded right coronary with well-developed collaterals. Both the circ and LAD also had nonobstructive stenosis not enough to warrant any intervention. Patient's EF was 55%. Post left heart catheterization, Mr. Ross refers to be doing okay. Every now and then, he has some chest discomfort. His medications were titrated and optimized by Cardiology. He did also undergo ultrasound of the abdomen which revealed cholelithiasis but no cholecystitis. He has been advised to follow up with Dr. Mohr for a gallbladder removal at a later date. Mr. Ross has been advised on alcohol and tobacco cessation, and also compliance with medications. He is supposed to follow up with Dr. Park, Dr. Lopez, and also Dr. Mohr. All the discharge instructions have been discussed with him. At the time of his discharge, his blood pressure is 154/73, pulse of 60, and respirations 20. The patient is saturating 96%. TIME SPENT FOR DISCHARGE: 38 minutes. cc: MD Jarred Juarez MD Hiteshri S. Bhavsar, MD Dr. Harney
== END 2019-04-18 14:50 | disposition home or self-care (01) | DRG 287 ==
LOC: ED 10:08 → EDIPHOLD 13:45 → 3N 15:31 → 2N 04-17 12:55
PROVIDERS: ATTEND Internal Medicine